=== PATIENT | male | born 1980 | race American Indian/Alaskan Native ===

== ENCOUNTER 2018-05-30 22:41 | Emergency (ER) | payer SELFPAY ==
[2018-05-30 23:19] VITALS: BP 119/80
--- NOTE | 2018-05-31 00:40 | XRay Report ---
FINAL REPORT EXAM: XR FINGER(S) 2+V LT HISTORY: pain /swelling TECHNIQUE: Three views of the left 5th finger were submitted. FINDINGS: There is an acute obliquely oriented nondisplaced fracture involving the proximal shaft of the distal phalanx with surrounding soft tissue swelling. The distal interphalangeal joint otherwise appears in tact. IMPRESSION: Acute obliquely oriented nondisplaced fracture involving the proximal shaft of the distal phalanx of the 5th finger with surrounding soft tissue swelling.
--- NOTE | 2018-05-31 00:42 | Emergency Department Report ---
ED Upper Extremity Inj HPI - General Chief Complaint: Extremity Injury, Upper Stated Complaint: LT PINKY FINGER Time Seen by Provider: 05/31/18 00:38 Source: patient Mode of arrival: Ambulatory Limitations: No Limitations - History of Present Illness Initial Comments: 37-year-old -Citizen Of [place] male comes in for left pinky finger pain. Patient reports that he injured it while playing basketball this afternoon. Patient reports is not that much pain. Patient has no known drug allergies currently takes no medications on a daily basis. Complaint: Injury to:: left -: This evening Other Extremity Injury: Fingers: Left (5th digit) Handedness: right Severity scale (0 -10): 4 Context: sports-related injury Associated Symptoms: denies other symptoms - Related Data Previous Rx's Medication Instructions Recorded Last Taken Type Ibuprofen [Motrin 600 MG tab] 600 mg PO Q8H PRN #15 tablet 05/31/18 Unknown Rx Allergies Allergy/AdvReac Type Severity Reaction Status Date / Time No Known Allergies Allergy Unverified 05/30/18 23:18 ED Review of Systems ROS: Stated complaint: LT PINKY FINGER Other details as noted in HPI Comment: All other systems reviewed and negative Musculoskeletal: joint swelling, arthralgia ED Past Medical Hx - Past Medical History Previous Medical History?: No - Surgical History Past Surgical History?: No - Social History Smoking Status: Never Smoker Substance Use Type: None - Medications Home Medications: Home Medications Medication Instructions Recorded Confirmed Last Taken Type Ibuprofen [Motrin 600 MG tab] 600 mg PO Q8H PRN #15 tablet 05/31/18 Unknown Rx ED Physical Exam - General Limitations: No Limitations General appearance: alert, in no apparent distress - Head Head exam: Present: atraumatic, normocephalic - Eye Eye exam: Present: EOMI - ENT ENT exam: Present: mucous membranes moist - Expanded Upper Extremity Exam Left Shoulder Exam: Present: normal inspection, full ROM Upper Arm exam: Present: normal inspection, full ROM Elbow exam: Present: normal inspection, full ROM Forearm Wrist exam: Present: normal inspection, full ROM Hand Wrist exam: Present: other (fifth digit tenderness to palpate mildly discolored capillary refill is less than 2 able to bend.) Vascular: Present: normal capillary refill. Absent: vascular compromise - Neurological Exam Neurological exam: Present: alert, oriented X3 - Psychiatric Psychiatric exam: Present: normal affect, normal mood ED Course Vital Signs 05/30/18 23:18 Temperature 97.9 F Pulse Rate 84 Respiratory 18 Rate Blood Pressure 119/80 O2 Sat by Pulse 94 Oximetry ED Medical Decision Making - Medical Decision Making Patient has been evaluated by this provider in fast track. X-ray of left hand shows that patient has a distal phalangeal oblique nondisplaced fracture Patient was offered pain medication he is decline. Patient will be placed in a finger splint and referral to orthopedics. Critical care attestation.: If time is entered above; I have spent that time in minutes in the direct care of this critically ill patient, excluding procedure time. ED Disposition Clinical Impression: Distal phalanx or phalanges, closed fracture Disposition: TO HOME OR SELFCARE Is pt being admited?: No Does the pt Need Aspirin: No Condition: Stable Instructions: Finger Fracture (ED) Additional Instructions: Please take pain medication only as needed. Increase her water intake while taking ibuprofen. Please wear finger splint for protection and support. This very important for follow-up with orthopedist I have listed there information below. Prescriptions: Ibuprofen [Motrin 600 MG tab] 600 mg PO Q8H PRN #15 tablet PRN Reason: Pain Referrals: EDMUNDO GROSS MD [Staff Physician] - 3-5 Days Forms: Work/School Release Form(ED)
== END 2018-05-31 01:08 | disposition home or self-care (01) ==
LOC: ED 22:41
DX: S62.667A Nondisplaced fracture of distal phalanx of left little finger, initial encounter for closed fracture (principal); X58.XXXA Exposure to other specified factors, initial encounter; Y93.67 Activity, basketball; Y92.89 Other specified places as the place of occurrence of the external cause; Y99.8 Other external cause status